=== PATIENT | male | born 1995 ===

== ENCOUNTER 2017-02-05 09:34 | Emergency (ER) | payer BC ==
[~2017-02-05] VITALS: Ht 170.2 cm; Wt 79.0 kg
[2017-02-05 09:37] VITALS: BP 156/90; PULSE 76; RESP 20; TEMP 98.3; O2SAT 99
[2017-02-05] MEDS ORDERED: OMEP40CA2 PO (09:54)
[2017-02-05 11:25] LABS: AUTOMATED NEUTROPHIL # 4.8 TH/MM3 (1.8-7.7); BASOPHIL # 0.1 TH/MM3 (0-0.2); BASOPHIL % 0.8 % (0.0-2.0); EOSINOPHIL # 0.1 TH/MM3 (0-0.4); EOSINOPHIL % 1.3 % (0.0-4.0); HEMATOCRIT 45.9 % (39.0-51.0); HEMO FLAGS DIFF FINAL; LYMPH % 22.9 % (9.0-44.0); LYMPHOCYTE # 1.6 TH/MM3 (1.0-4.8); MEAN CELL VOLUME 84.5 FL (80.0-100.0); MEAN CORPUSCULAR HEMOGLOBIN 29.4 PG (27.0-34.0); MEAN CORPUSCULAR HGB CONC 34.8 % (32.0-36.0); MONO % 7.1 % (0.0-8.0); NEUT % 67.9 % (16.0-70.0); PLATELET COUNT 221 TH/MM3 (150-450); RED BLOOD COUNT 5.42 MIL/MM3 (4.50-5.90); RED CELL DISTRIBUTION WIDTH 12.6 % (11.6-17.2); WHITE BLOOD COUNT 7.1 TH/MM3 (4.0-11.0)
--- NOTE | 2017-02-05 11:25 | PD ---
HPI Chief Complaint: GI Complaint Time Seen by Provider: 10:40 Travel History International Travel<30 days: No Contact w/Intl Traveler<30days: No Traveled to known affect area: No History of Present Illness HPI Patient is a 21-year-old male here with his mother for evaluation of abdominal pain and vomiting for about 1-1/2 weeks. Patient states that pain started 1-1/ 2 weeks ago, seemed to get better and then came back again a few days ago. He localizes it to the epigastric area. He has it in the morning. He states that pain and nausea wake him up around 5:30 in the morning. He has an episode of emesis and diarrhea and that all symptoms are resolved around 11 AM. Emesis is nonbilious and nonbloody. He was seen by his primary care provider at [facility] 3 days ago. He had outpatient blood work, urine test and ultrasound of his abdomen done. Family does not know the results. Patient was prescribed omeprazole 40 mg daily for presumed gastric ulcer. He states that since he started taking the medicine 3 days ago his symptoms have gotten worse. He states that now they're every morning although he does admit that he started having the morning symptoms the morning prior to starting the medication. His appetite is decreased. He is drinking fluids. He has no urinary symptoms. He admits that sometimes eating brings on the abdominal pain. There has been no urgency, frequency. He admits to a weight loss of about 12 pounds in the past week. He denies headaches. He denies blood in his stool. He denies constipation. He has a sore throat but this started after he drank some apple cider. He denies heartburn. There has been no cough, runny nose, fever. He has no rashes. He has no eye redness or eye drainage. He had similar pain 3-4 years ago that resolved without intervention. Prescription for omeprazole was written by Tracy Nunes. Mother wants work up to know exactly what is wrong with patient as she states that she does not trust the PCP. History Past Medical History Medical History: Denies Significant Hx Past Surgical History Surgical History: No Previous Surgery Social History Tobacco Use in Home: No Alcohol Use: No Tobacco Use: No Substance Use: No Allergies-Medications (Allergen,Severity, Reaction): Coded Allergies: No Known Allergies (Verified Allergy, Unknown, 02/05/17) Reported Meds & Prescriptions Reported Meds & Active Scripts Active Zantac (Ranitidine HCl) 150 Mg Tab 150 Mg PO BID ROS Except as stated in HPI: all other systems reviewed are Neg Physical Exam Narrative GENERAL APPEARANCE: The patient is a well-developed, well-nourished child in no acute distress. He is pink, alert and speaking clearly. SKIN: Skin is warm and dry without rashes. There is good turgor. No tenting. HEENT: Throat is clear without erythema, swelling or exudate. Uvula is midline. Mucous membranes are moist. Airway is patent. The pupils are equal, round and reactive to light. Extraocular motions are intact. No drainage or injection. Both tympanic membranes are without erythema, dullness or loss of landmarks. No perforation. No nasal congestion. NECK: Full range of motion without discomfort. LUNGS: Good air entry bilaterally with equal breath sounds without wheezes, rales or rhonchi. CHEST: The chest wall is without retractions or use of accessory muscles. HEART: Regular rate and rhythm without murmur. ABDOMEN: Soft, nondistended, nontender with positive active bowel sounds. No rebound tenderness and no guarding. No masses, no hepatosplenomegaly. EXTREMITIES: Full range of motion of all extremities is present. No cyanosis. Capillary refill is less than 2 seconds. NEUROLOGIC: The patient is alert, aware and appropriately interactive with parent and with examiner. Cranial nerves 2 to 12 are intact. The patient moves all extremities with normal muscle strength. Normal muscle tone is noted. Normal coordination is noted. Data Data Last Documented VS Vital Signs Date Time Temp Pulse Resp B/P (MAP) Pulse Ox O2 Delivery O2 Flow Rate FiO2 02/05/17 12:04 02/05/17 09:37 98.3 76 20 99 Room Air Orders Orders Complete Blood Count With Diff (02/05/17 10:55) Comprehensive Metabolic Panel (02/05/17 10:55) C-Reactive Protein (Crp) (02/05/17 10:55) Lipase (02/05/17 10:55) Iv Access Insert/Monitor (02/05/17 10:55) Labs Laboratory Tests Test 02/05/17 11:15 White Blood Count 7.1 TH/MM3 Red Blood Count 5.42 MIL/MM3 Hemoglobin 16.0 GM/DL Hematocrit 45.9 % Mean Corpuscular Volume 84.5 FL Mean Corpuscular Hemoglobin 29.4 PG Mean Corpuscular Hemoglobin Concent 34.8 % Red Cell Distribution Width 12.6 % Platelet Count 221 TH/MM3 Mean Platelet Volume 8.1 FL Neutrophils (%) (Auto) 67.9 % Lymphocytes (%) (Auto) 22.9 % Monocytes (%) (Auto) 7.1 % Eosinophils (%) (Auto) 1.3 % Basophils (%) (Auto) 0.8 % Neutrophils # (Auto) 4.8 TH/MM3 Lymphocytes # (Auto) 1.6 TH/MM3 Monocytes # (Auto) 0.5 TH/MM3 Eosinophils # (Auto) 0.1 TH/MM3 Basophils # (Auto) 0.1 TH/MM3 CBC Comment DIFF FINAL Differential Comment Blood Urea Nitrogen 16 MG/DL Creatinine 1.01 MG/DL Random Glucose 94 MG/DL Total Protein 8.3 GM/DL Albumin 4.6 GM/DL Calcium Level 9.3 MG/DL Alkaline Phosphatase 92 U/L Aspartate Amino Transf (AST/SGOT) 12 U/L Alanine Aminotransferase (ALT/SGPT) 28 U/L Total Bilirubin 0.7 MG/DL Sodium Level 137 MEQ/L Potassium Level 4.4 MEQ/L Chloride Level 104 MEQ/L Carbon Dioxide Level 28.7 MEQ/L Anion Gap 4 MEQ/L Estimat Glomerular Filtration Rate 95 ML/MIN C-Reactive Protein LESS THAN 0.29 MG/DL Lipase 112 U/L MDM Medical Decision Making Medical Screen Exam Complete: Yes Emergency Medical Condition: Yes Medical Record Reviewed: Yes (No prior ED visit in our system.) Interpretation(s) CBC is normal. CMP is normal. Lipase is normal. CPR is normal. Differential Diagnosis Gastritis, pancreatitis, GERD, nonspecific abdominal pain, gallbladder disease, hepatitis, mesenteric adenitis Narrative Course 21 year old male with abdominal pain and emesis that are most likely due to gastritis. He is very well appearing and well hydrated. His abdomen is benign. I explained to mother and patient that patient should be followed by PCP who is working patient up. Mother is insisting on work up here. I agreed to screening labs and changing patient to a different medication. Labs are reassuring. I advised follow up with PCP and referral to investment banking manager. Mother and patient are comfortable with plan since labs are normal. I am changing him to Zantac since he feels his symptoms are worse on omeprazole. I discussed diagnosis, expected course and treatment plan with patient and mother who feel comfortable. I discussed signs of worsening and reasons to return to ER. Diagnosis Primary Impression: Gastritis Qualified Codes: K29.00 - Acute gastritis without bleeding Referrals: Audit Mgr call for appointment Primary Care Physician 1 week Patient Instructions: Gastritis (ED), General Instructions Additional Instructions: May stop omeprazole and try Zantac/ranitidine. Continue bland diet - no greasy, acidic, spicy foods, caffeine, chocolate, soda , mint. Return to ER if worsening. Follow up with own doctor within 1 week. Discuss with own doctor referral to see a investment banking manager. Med/Other Pt SpecificInfo: Prescription(s) given, Med Stopped Scripts Ranitidine (Zantac) 150 Mg Tab 150 MG PO BID for Reduce Stomach Acid, #60 TAB 0 Refills Prov: Bety Meraz MD 02/05/17 Disposition: 01 DISCHARGE HOME Condition: Stable Primary Care Physician Unknown Bety Meraz MD Feb 05, 2017 11:25
[2017-02-05 11:41] LABS: ALT (GPT) 28 U/L (9-52); ANION GAP 4 MEQ/L (5-15); AST (GOT) 12 U/L (15-39); BICARBONATE 28.7 MEQ/L (21.0-32.0); BLOOD UREA NITROGEN 16 MG/DL (7-18); CHLORIDE 104 MEQ/L (98-107); GLOMERULAR FILTRATION RATE 95 ML/MIN (>89); POTASSIUM 4.4 MEQ/L (3.5-5.1); SODIUM (NA) 137 MEQ/L (136-145)
[2017-02-05 11:43] LABS: ALKALINE PHOSPHATASE 92 U/L (45-117); TOTAL BILIRUBIN ADULT 0.7 MG/DL (0.2-1.0)
[2017-02-05] MEDS ORDERED: ZANT150T2 PO (11:52)
== END 2017-02-05 12:04 | disposition home or self-care (01) ==
LOC: NEPA 09:34
DX: K29.00 Acute gastritis without bleeding (principal)
CPT/HCPCS: 80053; 83690; 85025; 86140; 99283

== ENCOUNTER 2017-02-28 06:45 | Emergency (ER) | payer BC ==
[2017-02-28 06:45] VITALS: BP 172/100; PULSE 98; RESP 16; TEMP 98.4; O2SAT 100
[~2017-02-28 06:45] MED LIST: ZANT150T2 PO
[2017-02-28 07:10] VITALS: BP 164/89; PULSE 79; RESP 12; O2SAT 98
[2017-02-28] MEDS ORDERED: CELE10TA PO (07:12)
--- NOTE | 2017-02-28 07:13 | PD ---
HPI Chief Complaint: GI Complaint Time Seen by Provider: 07:13 Travel History International Travel<30 days: No Contact w/Intl Traveler<30days: No Traveled to known affect area: No History of Present Illness HPI 21-year-old male came to the emergency room with history of vomiting and diarrhea every morning between 4:57 AM. Patient says he is woken up from the sleep with sharp abdominal pain and cramping has to go to the bathroom where he has watery diarrhea. He hasn't noticed any blood in the stool. He vomits one or twice around the same time. The rest of the day goes by okay. His appetite has been mediocre he said. He usually does not have much appetite for breakfast and by the time it is lunch to dinner the appetite gets little bit better. He is here with his mother who is extremely frustrated since they don' t know what is going on. He was seen by his primary care yesterday but sounds like mom was not satisfied with what is being done so far in terms of diagnosing his disorder. Meanwhile as per the patient he has lost 20 pounds. His vital signs are stable. Yesterday his primary care started him on Celexa which he took one dose and thinks that it made his symptoms worse. He is otherwise a healthy person. He does not take medications on a regular basis. Pain is periumbilical as he pointed out. Currently there is no pain. He says the pain is usually just before he has to go to the bathroom to move his bowels and slowly subsides once he has finished with the diarrhea. No recent travel out of the country. No known sick contacts. [facility] Past Medical History Narrative Medical List of his past medical, surgical, social and family history is reviewed from the nursing note. Social History Alcohol Use: No Tobacco Use: No Substance Use: No Allergies-Medications (Allergen,Severity, Reaction): Coded Allergies: citalopram (Verified Allergy, Severe, Twitching, 02/28/17) Comments List of his allergies reviewed from the nursing note. Reported Meds & Prescriptions Reported Meds & Active Scripts Active Reported Celexa (Citalopram Hydrobromide) 10 Mg Tab 10 Mg PO DAILY Narrative Medication List of his home medications reviewed from the nursing note. Review of Systems Except as stated in HPI: all other systems reviewed are Neg Gastrointestinal: Positive: Nausea, Vomiting, Diarrhea, Loss of Appetite Physical Exam Narrative GENERAL: Awake, alert, no obvious distress, anxious SKIN: Focused skin assessment warm/dry. HEAD: Atraumatic. Normocephalic. EYES: Pupils equal and round. No scleral icterus. No injection or drainage. ENT: No nasal bleeding or discharge. Mucous membranes pink and moist. NECK: Trachea midline. No JVD. CARDIOVASCULAR: Regular rate and rhythm. No murmur appreciated. RESPIRATORY: No accessory muscle use. Clear to auscultation. Breath sounds equal bilaterally. GASTROINTESTINAL: Abdomen soft, non-tender, nondistended. Hepatic and splenic margins not palpable. MUSCULOSKELETAL: No obvious deformities. No clubbing. No cyanosis. No edema. NEUROLOGICAL: Awake and alert. No obvious cranial nerve deficits. Motor grossly within normal limits. Normal speech. PSYCHIATRIC: Appropriate mood and affect; insight and judgment normal. Data Data Last Documented VS Orders Orders Sodium Chlor 0.9% 1000 Ml Inj (Ns 1000 M (02/28/17 08:00) Ed Discharge Order (02/28/17 07:59) [facility] Medical Decision Making Medical Screen Exam Complete: Yes Emergency Medical Condition: Yes Medical Record Reviewed: Yes Differential Diagnosis Enteritis, celiac disease, gastroenteritis Narrative Course 7:54 AM I tried to explain to the mother that given the fact that his vital signs are stable and blood work done 3 weeks ago when he was in the emergency room which showed normal CBC and CMP at this point there is no particular reason to pursue it with any further tests in the emergency room. Given the fact that his abdomen is soft and bowel sounds are present there is no reason to get a CAT scan either. I emphasized on the fact that she should take him back to his primary care who should refer him to a GI specialist. He would most probably require a colonoscopy and an upper endoscopy which could be done as an outpatient since bowel prep as needed. The scope would be a better modality to find out if there is any signs of inflammation and they may be able to even take biopsy to send for further test. I told her that in my opinion since this has been going on for 4 weeks it does not sound like infection. However if he can have a bowel movement I would be happy to send for stool studies. Patient said that he did not feel like he had to go to the bathroom again. Mom understands and does not want any further tests at this point. I' ll discharge him. Procedures EKG Prior to Arrival: No Diagnosis Primary Impression: Enteritis Referrals: Primary Care Physician 2 days Additional Instructions: Please see her primary care within the next couple days to get a referral to a GI specialist. He would require a colonoscopy and an upper endoscopy to determine the etiology of his chronic vomiting and diarrhea. In the meanwhile if symptoms worsen please return to the emergency room. Disposition: 01 DISCHARGE HOME Condition: Stable Maren Jackson MD Feb 28, 2017 07:13
[2017-02-28] MEDS ORDERED: SODIUM CHLOR 0.9% 1000 ML INJ 1,000 ML IV ONE (08:00)
== END 2017-02-28 08:07 | disposition home or self-care (01) ==
LOC: NEPE 06:45
DX: K52.9 Noninfective gastroenteritis and colitis, unspecified (principal)
CPT/HCPCS: 99281